=== PATIENT | male | born 1970 | race African-American/Black ===

== ENCOUNTER 2019-07-17 13:44 | Emergency (ER) | payer OTHER ==
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
[2019-07-17 14:32] LABS: Hematocrit 39 % (42-52); Hemoglobin 12.9 g/dL (14.0-18.0); Mean Corpuscular HGB Conc 33 g/dL (31-36); Mean Corpuscular Hemoglobin 30 pg (27-31); Mean Corpuscular Volume 89 fL (80-94); Mean Platelet Volume 10.7 fL (7.4-10.4); Platelet Count 173 10^3/uL (150-450); Red Blood Count 4.35 10^6 /uL (4.18-5.48); Red Cell Distribution Width 14 % (10-15); White Blood Count 7.3 10^3/uL (3.5-10.8)
[2019-07-17 14:34] LABS: ABS Neutrophils 4.4 10^3/ul (1.5-7.7)
[2019-07-17 14:52] LABS: ALT 110 U/L (7-52); AST 55 U/L (13-39); Albumin 3.8 g/dL (3.2-5.2); Albumin/Globulin Ratio 1.6 (1-3); Alkaline Phosphatase 100 U/L (34-104); Anion Gap 9 mmol/L (2-11); BUN/Creatinine Ratio 17.6 (8-20); Blood Urea Nitrogen 19 mg/dL (6-24); CO2 Carbon Dioxide 22 mmol/L (22-32); Calcium 8.9 mg/dL (8.6-10.3); Chloride 106 mmol/L (101-111); EGFR African American 87.2 (>60); EGFR Non-African American 72.1 (>60); Globulin 2.4 g/dL (2-4); Glucose 98 mg/dL (70-100); Magnesium 1.9 mg/dL (1.9-2.7); Potassium 3.8 mmol/L (3.5-5.0); Sodium 137 mmol/L (135-145); Total Protein 6.2 g/dL (6.4-8.9)
[2019-07-17] MEDS ORDERED: Iohexol 300* (CONTRAST) 10 ML SDV IV ONE (15:09)
[2019-07-17 15:15] LABS: Troponin I 0.03 ng/mL (<0.03)
[2019-07-17] MEDS ORDERED: Furosemide IV* 10 MG/ML VIAL (40 MG) IV SLOW PU ONE (15:29)
[2019-07-17 15:40] LABS: ABS Basophils 0.1 10^3/ul (0-0.2); ABS Eosinophils 0.2 10^3/ul (0-0.6); ABS Monocytes 0.7 10^3/ul (0-0.8); Eosinophil % 2.6 %; Lymphocyte % 27.3 %; Nucleated Red Blood Cells % 0.1
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
[2019-07-17 17:58] VITALS: BP 137/106
== END 2019-07-17 17:57 | disposition short-term general hospital (02) ==
LOC: ED 13:44
DX: R07.9 Chest pain, unspecified (principal); I50.20 Unspecified systolic (congestive) heart failure; I48.92 Unspecified atrial flutter; I51.9 Heart disease, unspecified; I69.354 Hemiplegia and hemiparesis following cerebral infarction affecting left non-dominant side; Z87.442 Personal history of urinary calculi; Z87.891 Personal history of nicotine dependence; Z79.01 Long term (current) use of anticoagulants; Z79.82 Long term (current) use of aspirin; Z79.899 Other long term (current) drug therapy
CPT/HCPCS: 36415; 71046; 71260; 80053; 83735; 83880; 84484; 85025; 93005; 96374; 99283; J1940; Q9967